=== PATIENT | female | born 1990 | race Caucasian/White ===

== ENCOUNTER 2022-01-01 13:37 | Emergency (ER) | payer OTHER ==
[~2022-01-01] VITALS: Ht 167.6 cm; Wt 89.0 kg
[2022-01-01 13:51] VITALS: BP 141/101
[2022-01-01] MEDS ORDERED: ACETAMINOPHEN 325MG TABLET PO ONE (15:45)
[2022-01-01] MEDS ORDERED: METOCLOPRAMIDE HCL 10MG TABLET PO ONE (15:45)
[2022-01-01] MEDS ORDERED: ACET-2708 MT (16:39)
[2022-01-01] MEDS ORDERED: ALBU6.7H9 INH (16:39)
== END 2022-01-01 17:08 | disposition home or self-care (01) ==
LOC: ER 13:37
DX: B34.9 Viral infection, unspecified (principal); R03.0 Elevated blood-pressure reading, without diagnosis of hypertension; Z20.822 Contact with and (suspected) exposure to COVID-19; Z88.0 Allergy status to penicillin
CPT/HCPCS: 71045; 81025; 87426; 87804; 99284; C9803; J8597

== ENCOUNTER 2022-07-25 12:39 | Emergency (ER) | payer OTHER ==
[~2022-07-25] VITALS: Ht 154.9 cm; Wt 91.0 kg
[~2022-07-25 12:39] MED LIST: ACET-2708 MT; ALBU6.7H3 INH
[2022-07-25] MEDS ORDERED: KETOROLAC 30MG/ML VIAL IM ONE (14:45)
[2022-07-25] MEDS ORDERED: CYCLOBENZAPRINE 10MG TABLET PO ONE (14:45)
[2022-07-25] MEDS ORDERED: TRIMO EACHEYE (15:10)
[2022-07-25] MEDS ORDERED: NAPR-1176 MT (15:10)
[2022-07-25] MEDS ORDERED: CYCL10TA21 MT (15:10)
[2022-07-25] MEDS ORDERED: GUAI600T26 MT (15:10)
[2022-07-25 15:41] VITALS: BP 128/86
== END 2022-07-25 15:43 | disposition home or self-care (01) ==
LOC: ER 12:49
DX: H10.9 Unspecified conjunctivitis (principal); M54.50 Low back pain, unspecified; J02.9 Acute pharyngitis, unspecified; R05.9 Cough, unspecified; Z88.0 Allergy status to penicillin; Z79.899 Other long term (current) drug therapy
CPT/HCPCS: 71045; 81025; 87070; 87430; 96372; 99284; J1885